=== PATIENT | male | born 1960 | race Caucasian/White ===

== ENCOUNTER 2018-05-14 08:30 | Outpatient (RCR) | payer OTHER, SELFPAY | END 2018-05-14 08:31 | disposition home or self-care (01) | LOC: PT 08:30 | PROVIDERS: Visit Provider Physician Assistant Medical | DX: S32.402A Unspecified fracture of left acetabulum, initial encounter for closed fracture (principal) | CPT/HCPCS: 97110; 97112; 97163; 97164 ==

== ENCOUNTER 2018-06-18 08:00 | Outpatient (RCR) | payer OTHER, SELFPAY | END 2018-06-18 08:05 | disposition home or self-care (01) | LOC: PT 08:00 | PROVIDERS: Visit Provider Orthopaedic Surgery Orthopaedic Trauma | DX: S32.402A Unspecified fracture of left acetabulum, initial encounter for closed fracture (principal) | CPT/HCPCS: 97010; 97014; 97016; 97110; 97140; 97163; 97164; G0283 ==